=== PATIENT | male | born 1985 | race Caucasian/White ===

== ENCOUNTER 2018-09-16 12:42 | Inpatient (IN) | payer OTHER ==
[2018-09-16] MEDS: LOPERAMIDE 2 MG CAP PO (14:02)
[2018-09-16] MEDS: ONDANSETRON 4 MG INJ IV (14:02)
[2018-09-16 14:06] LABS: ADD MAN DIFF? NO
[2018-09-16 14:09] LABS: BASOPHIL # 0.1 10^3/ul (0.0-0.1); BASOPHILS % 0.9 % (0.0-2.0); EOSINOPHILS % 8.9 % (0.0-7.0); HEMATOCRIT 38.4 % (42.0-52.0); HEMOGLOBIN 13.4 g/dl (14.0-18.0); LYMPHOCYTES # 1.3 10^3/ul (0.8-2.9); LYMPHOCYTES % 11.5 % (15.0-51.0); MEAN CORPUSCULAR HEMOGLOBIN 26.1 pg (29.0-33.0); MEAN CORPUSCULAR HGB CONC 34.9 g/dl (32.0-37.0); MEAN CORPUSCULAR VOLUME 74.7 fl (82.0-101.0); MONOCYTE # 0.6 10^3/ul (0.3-0.9); MONOCYTES % 5.4 % (0.0-11.0); NEUTROPHIL # 7.9 10^3/ul (1.6-7.5); NEUTROPHILS % 72.7 % (39.0-77.0); PLATELET COUNT 391 10^3/UL (140-415); RED BLOOD COUNT 5.14 10^6/ul (4.70-6.10); RED CELL DISTRIBUTION WIDTH 13.8 % (11.5-14.5)
[2018-09-16 14:09] LABS: WHITE BLOOD COUNT 10.9 10^3/ul (4.8-10.8)
[2018-09-16 14:25] LABS: ALANINE AMINOTRANSFERASE 36 IU/L (13-69); ALBUMIN 1.8 g/dl (3.3-4.9); ALBUMIN/GLOBULIN RATIO 0.72; ALKALINE PHOSPHATASE 226 IU/L (42-121); ANION GAP 5 (5-13); ASPARTATE AMINO TRANSFERASE 45 IU/L (15-46); BILIRUBIN,INDIRECT 0.3 mg/dl (0-1.1); BILIRUBIN,TOTAL 0.3 mg/dl (0.2-1.3); BLOOD UREA NITROGEN 16 mg/dl (7-20); CALCIUM 7.5 mg/dl (8.4-10.2); CARBON DIOXIDE 24 mmol/L (21-31); CHLORIDE 103 mmol/L (97-110); Estimated GFR 21 mL/min (>60); GLUCOSE 92 mg/dl (70-220); SODIUM 132 mmol/L (135-144); TOTAL PROTEIN 4.3 g/dl (6.1-8.1)
[2018-09-16 14:27] LABS: POTASSIUM 2.3 mmol/L (3.5-5.1)
[2018-09-16] MEDS: HYDROCODONE/APAP (5/325) TAB PO (14:34)
[2018-09-16 14:36] LABS: INR 0.99; PROTIME 13.2 Sec (11.9-14.9); TROPONIN-I < 0.012 ng/ml (0.000-0.120)
[2018-09-16 14:37] LABS: PARTIAL THROMBOPLASTIN TIME 40.5 Sec (23.0-35.0)
[2018-09-16] MEDS: POTASSIUM CHLORIDE 100 ML IVPB ×2 (15:49→18:47)
[2018-09-16] MEDS ORDERED: ONDANSETRON 4 MG INJ IV (18:30)
[2018-09-16] MEDS ORDERED: NACL 0.9% 3 ML SYG IV (18:30)
[2018-09-16] MEDS: HYDROCODONE/APAP (10/325) TAB PO ×2 (18:47→23:02)
[2018-09-16 19:17] LABS: PHOSPHORUS 5.5 mg/dl (2.5-4.9)
[2018-09-16 19:17] LABS: MAGNESIUM 1.9 mg/dl (1.7-2.5)
[2018-09-16] MEDS: ATORVASTATIN 20 MG TAB PO (20:27)
[2018-09-16] MEDS: DIPHENHYDRAMINE 25 MG CAP PO ×2 (20:27→22:44)
[2018-09-16] MEDS: POTASSIUM CHLORIDE (SR) 20 MEQ TAB PO (22:18)
[2018-09-16 23:18] LABS: ADD UMIC YES; UR ASCORBIC ACID NEGATIVE (NEGATIVE); UR BACTERIA FEW /HPF (NONE SEEN); UR BILIRUBIN (Dip) NEGATIVE (NEGATIVE); UR BLOOD (Dip) 1+ mg/dL (NEGATIVE); UR CLARITY SLIGHTLY CLOUDY (CLEAR); UR COLOR YELLOW (YELLOW); UR GLUCOSE (Dip) 3+ mg/dL (NEGATIVE); UR KETONES (Dip) TRACE mg/dL (NEGATIVE); UR LEUKOCYTE ESTERASE (Dip) NEGATIVE Leu/ul (NEGATIVE); UR NITRITE (Dip) NEGATIVE (NEGATIVE); UR RBC 1 /HPF (0-5); UR SPECIFIC GRAVITY (Dip) 1.014 (1.003-1.030); UR TOTAL PROTEIN (Dip) 3+ mg/dl (NEGATIVE); UR UROBILINOGEN (Dip) NEGATIVE (NEGATIVE); UR WBC 9 /HPF (0-5)
[2018-09-17 00:31] LABS: PARATHYROID HORMONE INTACT 148.9 pg/ml (7.5-53.5)
[2018-09-17] MEDS: ZOLPIDEM 5 MG TAB PO (00:45)
[2018-09-17] MEDS: ACETAMINOPHEN 325 MG TAB PO (00:45)
[2018-09-17 05:42] LABS: ADD MAN DIFF? NO
[2018-09-17 05:50] LABS: BASOPHIL # 0.1 10^3/ul (0.0-0.1); BASOPHILS % 1.5 % (0.0-2.0); EOSINOPHILS # 1.2 10^3/ul (0.0-0.5); EOSINOPHILS % 17.9 % (0.0-7.0); HEMATOCRIT 34.8 % (42.0-52.0); HEMOGLOBIN 11.7 g/dl (14.0-18.0); LYMPHOCYTES # 1.1 10^3/ul (0.8-2.9); LYMPHOCYTES % 16.1 % (15.0-51.0); MEAN CORPUSCULAR HEMOGLOBIN 25.4 pg (29.0-33.0); MEAN CORPUSCULAR HGB CONC 33.6 g/dl (32.0-37.0); MEAN CORPUSCULAR VOLUME 75.5 fl (82.0-101.0); MEAN PLATELET VOLUME 9.1 fl (7.4-10.4); MONOCYTE # 0.6 10^3/ul (0.3-0.9); MONOCYTES % 8.4 % (0.0-11.0); NEUTROPHIL # 3.7 10^3/ul (1.6-7.5); NEUTROPHILS % 55.4 % (39.0-77.0); PLATELET COUNT 318 10^3/UL (140-415); RED BLOOD COUNT 4.61 10^6/ul (4.70-6.10); RED CELL DISTRIBUTION WIDTH 14.1 % (11.5-14.5)
[2018-09-17 05:50] LABS: WHITE BLOOD COUNT 6.7 10^3/ul (4.8-10.8)
[2018-09-17] MEDS: PANTOPRAZOLE (EC) 40 MG TAB PO (06:03)
[2018-09-17] MEDS: LEVOTHYROXINE 100 MCG TAB PO (06:03)
[2018-09-17] MEDS: HYDROCODONE/APAP (10/325) TAB PO ×3 (06:04→18:06)
[2018-09-17 06:24] LABS: ALANINE AMINOTRANSFERASE 31 IU/L (13-69); ALBUMIN 1.5 g/dl (3.3-4.9); ALBUMIN/GLOBULIN RATIO 0.71; ALKALINE PHOSPHATASE 183 IU/L (42-121); ANION GAP 6 (5-13); ASPARTATE AMINO TRANSFERASE 36 IU/L (15-46); BILIRUBIN,INDIRECT 0.2 mg/dl (0-1.1); BILIRUBIN,TOTAL 0.2 mg/dl (0.2-1.3); BLOOD UREA NITROGEN 17 mg/dl (7-20); CALCIUM 7.3 mg/dl (8.4-10.2); CARBON DIOXIDE 23 mmol/L (21-31); CHLORIDE 103 mmol/L (97-110); CREATININE 3.67 mg/dl (0.61-1.24); Estimated GFR 19 mL/min (>60); GLUCOSE 82 mg/dl (70-220); SODIUM 132 mmol/L (135-144); TOTAL PROTEIN 3.6 g/dl (6.1-8.1)
[2018-09-17 06:38] LABS: POTASSIUM 2.4 mmol/L (3.5-5.1)
[2018-09-17 07:04] LABS: HEMOGLOBIN A1C 4.8 % (0-5.9)
[2018-09-17] MEDS ORDERED: CALCITRIOL 0.25 MCG CAP (07:38)
[2018-09-17] MEDS: POTASSIUM CHLORIDE (SR) 20 MEQ TAB PO ×2 (07:54→18:02)
[2018-09-17] MEDS: POTASSIUM CHLORIDE (SR) 10 MEQ TAB PO ×3 (07:54→18:06)
[2018-09-17] MEDS: CALCITRIOL 0.25 MCG CAP PO (07:54)
[2018-09-17] MEDS ORDERED: BARIUM SULF 2% 450 ML BTL (BERRY SMOOTHIE) PO (10:00)
[2018-09-17] MEDS: ASPIRIN 81 MG TAB PO (10:55)
[2018-09-17] MEDS: CALCIUM ACETATE 667 MG CAP PO ×2 (11:48→18:06)
[2018-09-17] MEDS ORDERED: POTASSIUM CHLORIDE (SR) 10 MEQ TAB PO (11:55)
[2018-09-17] MEDS: DIPHENHYDRAMINE 25 MG CAP PO ×2 (12:14→21:24)
[2018-09-17 14:54] LABS: ADD UMIC YES; UR ASCORBIC ACID NEGATIVE (NEGATIVE); UR BILIRUBIN (Dip) NEGATIVE (NEGATIVE); UR BLOOD (Dip) NEGATIVE (NEGATIVE); UR CLARITY SLIGHTLY CLOUDY (CLEAR); UR COLOR YELLOW (YELLOW); UR GLUCOSE (Dip) 3+ mg/dL (NEGATIVE); UR KETONES (Dip) NEGATIVE (NEGATIVE); UR LEUKOCYTE ESTERASE (Dip) NEGATIVE Leu/ul (NEGATIVE); UR NITRITE (Dip) NEGATIVE (NEGATIVE); UR RBC 1 /HPF (0-5); UR SPECIFIC GRAVITY (Dip) 1.009 (1.003-1.030); UR TOTAL PROTEIN (Dip) 3+ mg/dl (NEGATIVE); UR UROBILINOGEN (Dip) NEGATIVE (NEGATIVE); UR WBC 6 /HPF (0-5)
[2018-09-17 15:03] LABS: POTASSIUM 1.5 mmol/L (3.5-5.1)
[2018-09-17 15:09] LABS: CREATININE,URINE RANDOM 55.88 mg/dl (20-370)
[2018-09-17 15:55] LABS: POTASSIUM 3.1 mmol/L (3.5-5.1)
[2018-09-17 16:56] LABS: PROTEIN URINE > 600.0 mg/dl (0.0-11.9); PROTEIN/CREAT RATIO 10.73 RATIO
[2018-09-17] MEDS: HYDROmorphONE 0.5 MG/0.5 ML SYG IV ×2 (18:41→22:56)
[2018-09-17] MEDS: ATORVASTATIN 20 MG TAB PO (21:17)
[2018-09-17] MEDS: TRIAMCINOLONE ACET 0.5% 15 GM CR TOP (23:37)
[2018-09-18] MEDS: HYDROmorphONE 0.5 MG/0.5 ML SYG IV ×6 (03:03→23:58)
[2018-09-18] MEDS: HYDROCODONE/APAP (10/325) TAB PO ×4 (04:30→21:51)
[2018-09-18] MEDS: PANTOPRAZOLE (EC) 40 MG TAB PO (05:25)
[2018-09-18 05:41] LABS: ADD MAN DIFF? NO
[2018-09-18 05:45] LABS: BASOPHIL # 0.1 10^3/ul (0.0-0.1); BASOPHILS % 1.3 % (0.0-2.0); EOSINOPHILS # 1.2 10^3/ul (0.0-0.5); EOSINOPHILS % 15.7 % (0.0-7.0); HEMATOCRIT 36.8 % (42.0-52.0); HEMOGLOBIN 12.3 g/dl (14.0-18.0); LYMPHOCYTES % 12.5 % (15.0-51.0); MEAN CORPUSCULAR HEMOGLOBIN 25.8 pg (29.0-33.0); MEAN CORPUSCULAR HGB CONC 33.4 g/dl (32.0-37.0); MEAN CORPUSCULAR VOLUME 77.1 fl (82.0-101.0); MEAN PLATELET VOLUME 9.1 fl (7.4-10.4); MONOCYTE # 0.6 10^3/ul (0.3-0.9); MONOCYTES % 7.9 % (0.0-11.0); NEUTROPHIL # 4.7 10^3/ul (1.6-7.5); NEUTROPHILS % 61.9 % (39.0-77.0); PLATELET COUNT 325 10^3/UL (140-415); RED BLOOD COUNT 4.77 10^6/ul (4.70-6.10); RED CELL DISTRIBUTION WIDTH 14.1 % (11.5-14.5)
[2018-09-18 05:45] LABS: WHITE BLOOD COUNT 7.6 10^3/ul (4.8-10.8)
[2018-09-18 06:09] LABS: ALANINE AMINOTRANSFERASE 38 IU/L (13-69); ALBUMIN 1.5 g/dl (3.3-4.9); ALBUMIN/GLOBULIN RATIO 0.71; ALKALINE PHOSPHATASE 219 IU/L (42-121); ANION GAP 4 (5-13); ASPARTATE AMINO TRANSFERASE 37 IU/L (15-46); BILIRUBIN,INDIRECT 0.2 mg/dl (0-1.1); BILIRUBIN,TOTAL 0.2 mg/dl (0.2-1.3); BLOOD UREA NITROGEN 18 mg/dl (7-20); CALCIUM 7.3 mg/dl (8.4-10.2); CARBON DIOXIDE 23 mmol/L (21-31); CHLORIDE 101 mmol/L (97-110); CREATININE 3.72 mg/dl (0.61-1.24); Estimated GFR 19 mL/min (>60); GLUCOSE 85 mg/dl (70-220); SODIUM 128 mmol/L (135-144); TOTAL PROTEIN 3.6 g/dl (6.1-8.1)
[2018-09-18 06:22] LABS: POTASSIUM 2.9 mmol/L (3.5-5.1)
[2018-09-18] MEDS: LEVOTHYROXINE 100 MCG TAB PO (07:29)
[2018-09-18] MEDS: DIPHENHYDRAMINE 25 MG CAP PO ×2 (07:29→21:51)
[2018-09-18] MEDS ORDERED: POTASSIUM CHLORIDE (SR) 20 MEQ TAB PO (09:00)
[2018-09-18 09:17] LABS: IRON 31 ug/dl (35-150)
[2018-09-18] MEDS ORDERED: POTASSIUM CHLORIDE (SR) 10 MEQ TAB PO (09:23)
[2018-09-18 09:27] LABS: % IRON SATURATION 42 % SAT (22-52); TOTAL IRON BINDING CAPACITY 74 ug/dl (241-421)
[2018-09-18] MEDS: CALCIUM ACETATE 667 MG CAP PO ×3 (09:34→17:48)
[2018-09-18] MEDS: CALCITRIOL 0.25 MCG CAP PO (09:34)
[2018-09-18] MEDS: ASPIRIN 81 MG TAB PO (09:34)
[2018-09-18] MEDS: POTASSIUM CHLORIDE (SR) 10 MEQ TAB PO ×3 (09:34→21:51)
[2018-09-18] MEDS: LORATADINE 10 MG TAB PO (09:42)
[2018-09-18] MEDS: ACTHAR SC (13:11)
[2018-09-18] MEDS: ATORVASTATIN 20 MG TAB PO (21:51)
[2018-09-19] MEDS: PANTOPRAZOLE (EC) 40 MG TAB PO (05:19)
[2018-09-19] MEDS: LEVOTHYROXINE 100 MCG TAB PO (05:20)
[2018-09-19] MEDS: HYDROmorphONE 0.5 MG/0.5 ML SYG IV ×2 (05:21→09:57)
[2018-09-19 05:37] LABS: ADD MAN DIFF? NO
[2018-09-19 07:02] LABS: ALANINE AMINOTRANSFERASE 38 IU/L (13-69); ALBUMIN 1.9 g/dl (3.3-4.9); ALBUMIN/GLOBULIN RATIO 0.73; ALKALINE PHOSPHATASE 318 IU/L (42-121); ANION GAP 2 (5-13); ASPARTATE AMINO TRANSFERASE 29 IU/L (15-46); BILIRUBIN,INDIRECT 0.2 mg/dl (0-1.1); BILIRUBIN,TOTAL 0.2 mg/dl (0.2-1.3); BLOOD UREA NITROGEN 21 mg/dl (7-20); CARBON DIOXIDE 24 mmol/L (21-31); CHLORIDE 101 mmol/L (97-110); CREATININE 3.84 mg/dl (0.61-1.24); Estimated GFR 18 mL/min (>60); GLUCOSE 113 mg/dl (70-220); PHOSPHORUS 6.6 mg/dl (2.5-4.9); SODIUM 127 mmol/L (135-144); TOTAL PROTEIN 4.5 g/dl (6.1-8.1)
[2018-09-19] MEDS: ASPIRIN 81 MG TAB PO (08:04)
[2018-09-19] MEDS: CALCITRIOL 0.25 MCG CAP PO (08:05)
[2018-09-19] MEDS: CALCIUM ACETATE 667 MG CAP PO (08:05)
[2018-09-19] MEDS: LORATADINE 10 MG TAB PO (08:05)
[2018-09-19] MEDS: POTASSIUM CHLORIDE (SR) 10 MEQ TAB PO (08:05)
[2018-09-19] MEDS: HYDROCODONE/APAP (10/325) TAB PO (08:10)
[2018-09-19 11:17] LABS: BASOPHILS % 0.3 % (0.0-2.0); EOSINOPHILS # 0.1 10^3/ul (0.0-0.5); EOSINOPHILS % 0.6 % (0.0-7.0); HEMATOCRIT 43.8 % (42.0-52.0); HEMOGLOBIN 14.4 g/dl (14.0-18.0); LYMPHOCYTES # 0.7 10^3/ul (0.8-2.9); LYMPHOCYTES % 6.8 % (15.0-51.0); MEAN CORPUSCULAR HEMOGLOBIN 26.1 pg (29.0-33.0); MEAN CORPUSCULAR HGB CONC 32.9 g/dl (32.0-37.0); MEAN CORPUSCULAR VOLUME 79.3 fl (82.0-101.0); MEAN PLATELET VOLUME 9.5 fl (7.4-10.4); MONOCYTE # 0.1 10^3/ul (0.3-0.9); MONOCYTES % 1.3 % (0.0-11.0); NEUTROPHIL # 9.2 10^3/ul (1.6-7.5); NEUTROPHILS % 90.3 % (39.0-77.0); PLATELET COUNT 459 10^3/UL (140-415); RED BLOOD COUNT 5.52 10^6/ul (4.70-6.10); RED CELL DISTRIBUTION WIDTH 13.8 % (11.5-14.5)
[2018-09-19 11:17] LABS: WHITE BLOOD COUNT 10.1 10^3/ul (4.8-10.8)
[2018-09-19 11:21] LABS: COLLECTION PERIOD 24 hrs
[2018-09-19 11:22] LABS: COLLECTION PERIOD 24 hrs; CREATININE CLEARANCE 14.1 mls/min (84.0-162.0); CREATININE,URINE RANDOM 67.77 mg/dl (20-370); SCRET 3.84 mg/dl (0.61-1.24); VOLUME 1150 ml/24hrs
[2018-09-19 12:43] LABS: VOLUME 1150 mls
== END 2018-09-19 12:30 | disposition home or self-care (01) | DRG 683 ==
LOC: E/R 12:42 → 6WM 14:53
DX: N18.5 Chronic kidney disease, stage 5 (principal); N25.81 Secondary hyperparathyroidism of renal origin; N04.1 Nephrotic syndrome with focal and segmental glomerular lesions; Z99.2 Dependence on renal dialysis; D63.1 Anemia in chronic kidney disease; D89.89 Other specified disorders involving the immune mechanism, not elsewhere classified; E03.9 Hypothyroidism, unspecified; E78.5 Hyperlipidemia, unspecified; E87.6 Hypokalemia; E66.9 Obesity, unspecified; M25.511 Pain in right shoulder; R11.2 Nausea with vomiting, unspecified; R21 Rash and other nonspecific skin eruption; Z68.37 Body mass index [BMI] 37.0-37.9, adult
CPT/HCPCS: 36415; 71045; 74176; 80053; 81001; 81003; 82306; 82570; 82575; 82728; 83036; 83540; 83735; 83970; 84100; 84132; 84156; 84443; 84484; 85025; 85610; 85730; 93005; 93970; 96374; 99285-25

== ENCOUNTER → 2018-09-27 | Outpatient (CLI) | payer OTHER ==
[2018-09-27 08:12] LABS: ALANINE AMINOTRANSFERASE 26 IU/L (13-69); ALBUMIN 1.7 g/dl (3.3-4.9); ALKALINE PHOSPHATASE 253 IU/L (42-121); ANION GAP 1 (5-13); ASPARTATE AMINO TRANSFERASE 28 IU/L (15-46); BILIRUBIN,INDIRECT 0.3 mg/dl (0-1.1); BILIRUBIN,TOTAL 0.3 mg/dl (0.2-1.3); BLOOD UREA NITROGEN 17 mg/dl (7-20); CALCIUM 7.9 mg/dl (8.4-10.2); CARBON DIOXIDE 18 mmol/L (21-31); CHLORIDE 116 mmol/L (97-110); CREATININE 1.33 mg/dl (0.61-1.24); Estimated GFR > 60 mL/min (>60); GLUCOSE 80 mg/dl (70-220); SODIUM 135 mmol/L (135-144); TOTAL PROTEIN 4.1 g/dl (6.1-8.1)
== END | disposition home or self-care (01) ==
LOC: LAB 07:30
DX: N19 Unspecified kidney failure (principal)
CPT/HCPCS: 80053

== ENCOUNTER 2018-10-31 07:53 | Day surgery (SDC) | payer OTHER ==
[2018-10-31 09:02] LABS: ADD MAN DIFF? NO
[2018-10-31 09:03] LABS: BASOPHIL # 0.1 10^3/ul (0.0-0.1); BASOPHILS % 0.6 % (0.0-2.0); EOSINOPHILS # 1.4 10^3/ul (0.0-0.5); EOSINOPHILS % 10.7 % (0.0-7.0); HEMATOCRIT 36.9 % (42.0-52.0); HEMOGLOBIN 11.9 g/dl (14.0-18.0); LYMPHOCYTES # 1.2 10^3/ul (0.8-2.9); MEAN CORPUSCULAR HGB CONC 32.2 g/dl (32.0-37.0); MEAN CORPUSCULAR VOLUME 80.7 fl (82.0-101.0); MEAN PLATELET VOLUME 9.5 fl (7.4-10.4); MONOCYTE # 0.9 10^3/ul (0.3-0.9); MONOCYTES % 7.2 % (0.0-11.0); NEUTROPHIL # 9.2 10^3/ul (1.6-7.5); NEUTROPHILS % 70.4 % (39.0-77.0); PLATELET COUNT 357 10^3/UL (140-415); RED BLOOD COUNT 4.57 10^6/ul (4.70-6.10); RED CELL DISTRIBUTION WIDTH 15.1 % (11.5-14.5)
[2018-10-31 09:09] LABS: HOLD TRANSMISSIONS 1
[2018-10-31 09:21] LABS: BLOOD UREA NITROGEN 12 mg/dl (7-20); CARBON DIOXIDE 28 mmol/L (21-31); CHLORIDE 108 mmol/L (97-110); GLUCOSE 86 mg/dl (70-220); SODIUM 135 mmol/L (135-144)
[2018-10-31 09:22] LABS: ALANINE AMINOTRANSFERASE 29 IU/L (13-69); ALBUMIN 1.9 g/dl (3.3-4.9); ALKALINE PHOSPHATASE 172 IU/L (42-121); ASPARTATE AMINO TRANSFERASE 27 IU/L (15-46); BILIRUBIN,INDIRECT 0.6 mg/dl (0-1.1); BILIRUBIN,TOTAL 0.6 mg/dl (0.2-1.3); Estimated GFR > 60 mL/min (>60); PROTIME 13.3 Sec (11.9-14.9)
[2018-10-31 09:26] LABS: ANION GAP 0 (5-13)
[2018-10-31 09:28] LABS: POTASSIUM 2.9 mmol/L (3.5-5.1)
[2018-10-31 09:29] LABS: CALCIUM 7.3 mg/dl (8.4-10.2); CREATININE 1.34 mg/dl (0.61-1.24)
[2018-10-31 09:32] LABS: PARTIAL THROMBOPLASTIN TIME 45.6 Sec (23.0-35.0)
[2018-10-31 10:24] LABS: POTASSIUM 2.9 mmol/L (3.5-5.1)
== END 2018-10-31 10:48 | disposition home or self-care (01) ==
LOC: SDS 07:53
DX: T82.590D Other mechanical complication of surgically created arteriovenous fistula, subsequent encounter (principal); Y84.1 Kidney dialysis as the cause of abnormal reaction of the patient, or of later complication, without mention of misadventure at the time of the procedure; I12.0 Hypertensive chronic kidney disease with stage 5 chronic kidney disease or end stage renal disease; N18.6 End stage renal disease; Z53.8 Procedure and treatment not carried out for other reasons
CPT/HCPCS: 71045; 80053; 84132; 85025; 85610; 85730; 93005